=== PATIENT | female | born 1990 | race Caucasian/White ===

== ENCOUNTER 2021-10-02 20:53 | Emergency (ER) | payer MEDICAID ==
[~2021-10-02] VITALS: Ht 162.6 cm; Wt 100.0 kg
[2021-10-02] MEDS ORDERED: TETANUS, DIPHTHERIA, PERTUSSIS VAC/PF 0.5ML (>10YR OLD) IM ONE ×2 (21:15→23:15)
[2021-10-03] MEDS ORDERED: ACETAMINOPHEN 500MG TABLET PO ONE
[2021-10-03] MEDS ORDERED: SODIUM CHLORIDE 0.9% 1,000 ML IV ONE (00:15)
[2021-10-03 03:30] VITALS: BP 118/60
== END 2021-10-03 05:14 | disposition home or self-care (01) ==
LOC: ER 20:53
DX: G40.909 Epilepsy, unspecified, not intractable, without status epilepticus (principal); S80.212A Abrasion, left knee, initial encounter; X58.XXXA Exposure to other specified factors, initial encounter; Y93.89 Activity, other specified; Y92.89 Other specified places as the place of occurrence of the external cause; E66.9 Obesity, unspecified; Z68.37 Body mass index [BMI] 37.0-37.9, adult
CPT/HCPCS: 70450; 73562; 90471; 90715; 99284; J7030